=== PATIENT | female | born 1965 | race Caucasian/White ===

== ENCOUNTER 2020-02-14 10:48 | Outpatient (CLI) | payer BC | END 2020-02-14 10:49 | disposition home or self-care (01) | LOC: COV 10:48 | PROVIDERS: ATTEND Family Medicine | DX: R50.9 Fever, unspecified (principal); R05 Cough; M79.10 Myalgia, unspecified site; R53.83 Other fatigue; J02.9 Acute pharyngitis, unspecified; R09.81 Nasal congestion; Z20.828 Contact with and (suspected) exposure to other viral communicable diseases ==

== ENCOUNTER 2020-04-12 07:00 | Outpatient (CLI) | payer BC ==
--- NOTE | 2020-04-12 11:31 | XRAY Report ---
PROCEDURE: Chest 2 View X-Ray INDICATIONS: CHEST PAIN TECHNIQUE: 2 view(s) of the chest. COMPARISON: None. FINDINGS: Surgical changes and devices: None. Lungs and pleura: No pleural effusions or pneumothorax. Lungs are clear. Mediastinum: Mediastinal contours are normal. Heart size is normal. Bones and chest wall: No suspicious bony abnormalities. Soft tissues appear unremarkable. IMPRESSION: No acute cardiopulmonary disease process. Reviewed by: Nan Alatorre MD, PhD on 04/12/2020 11:29 AM [facility] Approved by: Nan Alatorre MD, PhD on 04/12/2020 11:29 AM [facility] Station ID: [id number]
== END 2020-04-12 23:59 | disposition home or self-care (01) ==
LOC: DI.S 07:00
PROVIDERS: ATTEND Physician Assistant
DX: R07.9 Chest pain, unspecified (principal)

== ENCOUNTER 2020-04-12 12:36 | Emergency (ER) | payer BC ==
--- NOTE | 2020-04-12 13:03 | ED Physician Documentation ---
PD HPI CHEST PAIN - Stated complaint Stated Complaint: CHEST PX - History obtained from History obtained from: Patient - Additional information Additional information: 54-year-old woman with history of hypertension had coronavirus 3 weeks ago and has been short of breath ever since. Over the last few days, 3-4 she has had migratory very fleeting sharp chest pain. There is no particular pattern to it. Few days ago it was on the right side and radiating up towards the neck. Today it has been more on the left. She denies cough. She has had left leg pain for a day or 2 as well. No history of DVT or PE or coronary issues. Review of Systems Ten Systems: 10 systems reviewed and negative Constitutional: reports: Fatigue Cardiac: reports: Chest pain / pressure, Pedal edema, Calf pain. denies: Palpitations Respiratory: reports: Dyspnea. denies: Cough PD PAST MEDICAL HISTORY - Past Surgical History Past Surgical History: Yes /FLAME CUTTER: Hysterectomy - Present Medications Home Medications: Ambulatory Orders Medication Instructions Recorded Confirmed Sertraline [Zoloft] 04/12/20 lisinopriL [Zestril] 04/12/20 - Allergies Allergies/Adverse Reactions: Allergies Allergy/AdvReac Type Severity Reaction Status Date / Time Latex, Natural Rubber Allergy Rash Verified 04/12/20 13:09 Sulfa (Sulfonamide Allergy unknown Verified 04/12/20 13:09 Antibiotics) - Social History Does the pt smoke?: No Smoking Status: Never smoker Does the pt drink ETOH?: No Does the pt have substance abuse?: No - Immunizations Immunizations are current?: Yes - POLST Patient has POLST: No PD ED PE NORMAL - Vitals Vital signs reviewed: Yes - General General: Alert and oriented X 3, No acute distress - HEENT HEENT: PERRL, EOMI - Neck Neck: Supple, no meningeal sign, No bony TTP - Cardiac Cardiac: RRR, No murmur - Respiratory Respiratory: No respiratory distress, Clear bilaterally - Abdomen Abdomen: Non tender - Back Back: No CVA TTP, No spinal TTP - Derm Derm: Normal color, Warm and dry - Extremities Extremities: Other (Mild left calf tenderness without obvious asymmetry on exam.) - Neuro Neuro: Alert and oriented X 3, Normal speech Results - Vitals Vitals: Vital Signs - 24 hr 04/12/20 04/12/20 04/12/20 13:03 14:25 15:36 Temperature 36.8 C Heart Rate 67 70 73 Respiratory 18 18 17 Rate Blood Pressure 196/111 H 148/93 H 147/92 H O2 Saturation 99 97 97 Oxygen O2 Source Room air - EKG (time done) 1247 Rate: Rate (enter#) (65) Rhythm: NSR [place]: Normal Intervals: Normal MT QRS: Normal Ischemia: Normal ST segments Computer interpretation: Disagree with computer (calls it aflutter, but there is artifact) - Labs Labs: Laboratory Tests 04/12/20 04/12/20 04/12/20 13:00 13:00 13:00 WBC 6.4 RBC 4.41 Hgb 13.1 Hct 39.3 MCV 89.1 MCH 29.7 MCHC 33.3 RDW 13.3 Plt Count 212 MPV 10.1 Neut # (Auto) 4.8 Lymph # (Auto) 1.1 L [place] # (Auto) 0.4 Eos # (Auto) 0.1 Baso # (Auto) 0.1 Absolute Nucleated RBC 0.00 Nucleated RBC % 0.0 D-Dimer > 1050.0 H Sodium 135 Potassium 3.8 Chloride 101 Carbon Dioxide 22 Anion Gap 12.0 BUN 16 Creatinine 0.7 Estimated GFR (MDRD) 88 L Glucose 132 H Calcium 9.4 Troponin I High Sens 04/12/20 13:00 WBC RBC Hgb Hct MCV MCH MCHC RDW Plt Count MPV Neut # (Auto) Lymph # (Auto) [place] # (Auto) Eos # (Auto) Baso # (Auto) Absolute Nucleated RBC Nucleated RBC % D-Dimer Sodium Potassium Chloride Carbon Dioxide Anion Gap BUN Creatinine Estimated GFR (MDRD) Glucose Calcium Troponin I High Sens 4.4 - Rads (name of study) LLE Duplex Radiology: Prelim report reviewed (no DVT) PD MEDICAL DECISION MAKING - ED course ED course: 54-year-old woman presents with fleeting atypical chest pains and left leg swelling. She had recent coronavirus and this may be the cause of the positive D-dimer in the setting of negative CT angiography of the chest and left leg Doppler. Took call from radiologist Regarding 7 mm right lower lobe nodule which was not discussed with the patient at the time of service. I called her at home and spoke with her personally at 1720 hrs., she was already aware of this but understands the need for repeat CT in 6 months. Departure - Departure Disposition: Home, Self Care Clinical Impression: Atypical chest pain Leg pain Qualifiers: Laterality: left Qualified Code(s): M79.605 - Pain in left leg Condition: Good Record reviewed to determine appropriate education?: Yes Instructions: ED Chest Pain NonCardiac Comments: Call your doctor to arrange a follow-up appointment, make the next available appointment. In the interim, return anytime if worse or if new symptoms develop. Discharge Date/Time: 04/12/20 15:40
[2020-04-12] MEDS ORDERED: ASPIRIN CHEW 81 MG TABLET PO STA (13:10)
[2020-04-12 13:11] LABS: BASOPHILS # (AUTO) 0.1 10^3/uL (0.0-0.1); BASOPHILS % (AUTO) 0.8 %; EOSINOPHILS # (AUTO) 0.1 10^3/uL (0.0-0.7); EOSINOPHILS % (AUTO) 0.9 %; HGB - HEMOGLOBIN 13.1 g/dL (12.0-16.0); LYMPHOCYTES # (AUTO) 1.1 10^3/uL (1.5-3.5); LYMPHOCYTES % (AUTO) 17.2 %; MEAN CORPUSCULAR HEMOGLOBIN 29.7 pg (27.0-31.0); MEAN CORPUSCULAR HGB CONC 33.3 g/dL (32.0-36.0); MEAN CORPUSCULAR VOLUME 89.1 fL (81.0-99.0); MEAN PLATELET VOLUME 10.1 fL (7.9-10.8); MONOCYTES # (AUTO) 0.4 10^3/uL (0.0-1.0); NEUTROPHILS # (AUTO) 4.8 10^3/uL (1.5-6.6); NEUTROPHILS % (AUTO) 74.8 %; PLT - PLATELET COUNT 212 10^3/uL (130-450); RED BLOOD COUNT 4.41 10^6/uL (4.20-5.40); RED CELL DISTRIBUTION WIDTH 13.3 % (12.0-15.0); WHITE BLOOD COUNT 6.4 x10^3/uL (4.8-10.8)
[2020-04-12 13:44] LABS: CALCIUM 9.4 mg/dL (8.5-10.3); CREATININE 0.7 mg/dL (0.4-1.0)
[2020-04-12] MEDS ORDERED: IOVERSOL 320 100 ML VIAL IVP ONE ×2 (14:40→14:51)
--- NOTE | 2020-04-12 15:03 | CT Report ---
PROCEDURE: ANGIO CHEST W/WO INDICATIONS: chest pain, high dimer, PE protocol CONTRAST: IV CONTRAST: Optiray 320 ml: 160 PO CONTRAST: *NO PO CONTRAST TECHNIQUE: After the administration of intravenous contrast, 2 mm thick sections acquired from the pulmonary api beth to the posterior costophrenic angles. 3-dimensional maximum intensity projection (MIP) coronal a nd sagittal reformats were then acquired through the thorax. For radiation dose reduction, the follow ing was used: automated exposure control, adjustment of mA and/or kV according to patient size. COMPARISON: None FINDINGS: Image quality: Excellent. Pulmonary arteries: Pulmonary arteries are normal in size, and demonstrate no intraluminal filling d efects to suggest central pulmonary embolism. Lungs and pleura: Lungs are clear. No pleural effusions or pneumothorax. Central and peripheral ai rways are patent. Mediastinum: Heart size is normal, without pericardial effusion. No mediastinal or hilar adenopathy . Thoracic aorta is normal in caliber and enhancement. Esophagus is normal in caliber, without hiat al hernia. Bones and chest wall: No suspicious bony lesions. Ribs and thoracic spine appear intact throughout. The thyroid is normal. No axillary or supraclavicular adenopathy. Abdomen: Visualized upper abdominal solid organs appear normal in the early arterial phase of enhanc ement. IMPRESSION: 1. No pulmonary embolism. 2. No acute abnormality of the chest. Reviewed by: Jameson Alamo on 04/12/2020 3:02 PM PST Approved by: Jameson Alamo on 04/12/2020 3:02 PM PST Station ID: [id number]
--- NOTE | 2020-04-12 15:15 | Ultrasound Report ---
PROCEDURE: Duplex Ext Veins Left INDICATIONS: LLE pain TECHNIQUE: Real-time imaging, as well as color and pulse Doppler interrogation, were performed of the lower extr emity deep veins from the inguinal ligament to the popliteal fossa. COMPARISON: None. FINDINGS: The visualized deep veins are normally compressible, and free of intraluminal thrombus. Th e peroneal vein was not well visualized in the left lower leg. Color and pulse Doppler demonstrate no rmal phasic intraluminal flow. There is normal augmentation response to distal compression maneuver. IMPRESSION: 1. No evidence of deep venous thrombosis in the left lower extremity. Reviewed by: Jason Cage MD on 04/12/2020 3:14 PM PST Approved by: Jason Cage MD on 04/12/2020 3:14 PM PST Station ID: [id number]
[2020-04-12 15:36] VITALS: BP 147/92
== END 2020-04-12 15:40 | disposition home or self-care (01) ==
LOC: ED 12:36
DX: R07.89 Other chest pain (principal); M79.605 Pain in left leg; I10 Essential (primary) hypertension
CPT/HCPCS: 71275; 80048; 84484; 85025; 85379; 93005; 93971; 99284; A9270; Q9967

== ENCOUNTER 2020-06-24 15:09 | Outpatient (CLI) | payer BC ==
--- NOTE | 2020-06-25 08:27 | Mammography Report ---
BILATERAL DIGITAL SCREENING MAMMOGRAM 3D/2D: 06/24/2020 CLINICAL: Routine screening. Comparison is made to exams dated: 08/22/2018 mammogram, 06/17/2017 mammogram, and 08/26/[address] - [facility]. The tissue of both breasts is heterogeneously dense. This ma y lower the sensitivity of mammography. No significant masses, calcifications, or other findings are seen in either breast. There has been no significant interval change. IMPRESSION: NEGATIVE There is no mammographic evidence of malignancy. A 1 year screening mammogram is recommended. This exam was interpreted at Station ID: [id number]. NOTE: For mammograms, a report in lay terms will be sent to the patient. Approximately 15% of breast malignancies will not be visualized mammographically. In the management of a palpable breast mass, a negative mammogram must not discourage biopsy of a clinically suspicious lesion. Electronically Signed By: Myles Vann M.D. [email or web address]:06/24/2020 16:37:31 ACR BI-RADS Category 1: Negative 3341F PARENCHYMAL PATTERN: (D) - The breast(s) demonstrate(s) heterogeneously dense fibroglandular parenchy ma. BI-RADS CATEGORY: (1) - 1 RECOMMENDATION: (ANNUAL) - Recommend routine annual screening mammography. [id number] 1 year screening LATERALITY: (B)
== END 2020-06-24 15:10 | disposition home or self-care (01) ==
LOC: DI.S 15:09
PROVIDERS: ATTEND Registered Nurse
DX: Z12.31 Encounter for screening mammogram for malignant neoplasm of breast (principal)

== ENCOUNTER 2021-01-24 16:49 | Outpatient (CLI) | payer BC ==
[2021-01-24 17:06] LABS: BASOPHILS # (AUTO) 0.1 10^3/uL (0.0-0.1); BASOPHILS % (AUTO) 1.1 %; EOSINOPHILS # (AUTO) 0.1 10^3/uL (0.0-0.7); EOSINOPHILS % (AUTO) 2.2 %; HCT - HEMATOCRIT 39.6 % (37.0-47.0); HGB - HEMOGLOBIN 13.3 g/dL (12.0-16.0); LYMPHOCYTES # (AUTO) 1.3 10^3/uL (1.5-3.5); LYMPHOCYTES % (AUTO) 20.3 %; MEAN CORPUSCULAR HEMOGLOBIN 29.6 pg (27.0-31.0); MEAN CORPUSCULAR HGB CONC 33.6 g/dL (32.0-36.0); MEAN CORPUSCULAR VOLUME 88.2 fL (81.0-99.0); MEAN PLATELET VOLUME 9.5 fL (7.9-10.8); MONOCYTES # (AUTO) 0.3 10^3/uL (0.0-1.0); MONOCYTES % (AUTO) 5.2 %; NEUTROPHILS # (AUTO) 4.6 10^3/uL (1.5-6.6); PLT - PLATELET COUNT 211 10^3/uL (130-450); RED BLOOD COUNT 4.49 10^6/uL (4.20-5.40); RED CELL DISTRIBUTION WIDTH 12.9 % (12.0-15.0); WHITE BLOOD COUNT 6.5 x10^3/uL (4.8-10.8)
[2021-01-24 17:25] LABS: ALBUMIN 4.8 g/dL (3.2-5.5); ALBUMIN/GLOBULIN RATIO 1.5 (1.0-2.2); ALKALINE PHOSPHATASE 81 IU/L (42-121); ALT ALANINE AMINOTRANSFERASE 19 IU/L (10-60); AST ASPARTATE AMINOTRANSFERASE 24 IU/L (10-42); BILIRUBIN,TOTAL 0.6 mg/dL (0.2-1.0); BUN - BLOOD UREA NITROGEN 17 mg/dL (6-20); CALCIUM 9.5 mg/dL (8.5-10.3); CARBON DIOXIDE - CO2 25 mmol/L (21-32); CHLORIDE 99 mmol/L (101-111); CHOLESTEROL 270 mg/dL; CREATININE 0.8 mg/dL (0.4-1.0); GFR - MDRD 75 (>89); GLUCOSE 100 mg/dL (70-100); HDL CHOLESTEROL 54 mg/dL; LDL CHOLESTEROL,CALCULATED 185 mg/dL; LDL/HDL RATIO 3.4 (<4.4); POTASSIUM 3.8 mmol/L (3.5-5.0); SODIUM 135 mmol/L (135-145); TOTAL PROTEIN 7.9 g/dL (6.7-8.2); TRIGLYCERIDES 153 mg/dL; VLDL CHOLESTEROL 31 mg/dL
[2021-01-24 17:37] LABS: THYROID STIMULATING HORMONE 1.77 uIU/mL (0.34-5.60)
== END 2021-01-24 16:50 | disposition home or self-care (01) ==
LOC: LAB 16:49
PROVIDERS: ATTEND Registered Nurse
DX: U07.1 COVID-19 (principal); G43.909 Migraine, unspecified, not intractable, without status migrainosus; I10 Essential (primary) hypertension
CPT/HCPCS: 36415; 80053; 80061; 83721; 84443; 85025

== ENCOUNTER 2021-11-18 08:00 | Outpatient (CLI) | payer BC ==
--- NOTE | 2021-11-18 13:46 | XRAY Report ---
PROCEDURE: Ankle 3 View RT INDICATIONS: RIGHT ANKLE PAIN TECHNIQUE: 3 views of the ankle were acquired. COMPARISON: None FINDINGS: Bones: Minimal displaced distal fibular tip fracture.. Ankle mortise is normally aligned. No suspic ious bony lesions. Soft tissues: Lateral malleoli are edema. Achilles tendon appears normal. IMPRESSION: Minimal displaced distal fibular tip fracture. Reviewed by: Nat James MD on 11/18/2021 1:45 PM PDT Approved by: Nat James MD on 11/18/2021 1:45 PM PDT Station ID: [id number]
--- NOTE | 2021-11-18 13:48 | XRAY Report ---
PROCEDURE: Foot 3 View RT INDICATIONS: RIGHT FOOT PAIN TECHNIQUE: 3 views of the foot were acquired. COMPARISON: X-ray ankle 11/18/2021 FINDINGS: Bones: There is a mildly displaced fracture at the base of the fifth metatarsal. Distal fibular tip f racture is present although better seen on x-ray foot of 11/10/2021. No suspicious bony lesions. Soft tissues: Edema is noted adjacent to the fifth digit as well as lateral malleolus. Achilles tendo n appears normal. IMPRESSION: Mildly displaced fifth metatarsal base fracture. Minimally displaced distal fibular tip fracture. Please see x-ray ankle 11/18/2021. Reviewed by: Nat James MD on 11/18/2021 1:46 PM PDT Approved by: Nat James MD on 11/18/2021 1:46 PM PDT Station ID: [id number]
== END 2021-11-18 23:59 | disposition home or self-care (01) ==
LOC: DI.S 08:00
PROVIDERS: ATTEND Physician Assistant Medical
DX: S82.831A Other fracture of upper and lower end of right fibula, initial encounter for closed fracture (principal); S92.351A Displaced fracture of fifth metatarsal bone, right foot, initial encounter for closed fracture

== ENCOUNTER → 2021-11-18 | Outpatient (CLI) | payer BC | END | disposition EMS.NT | LOC: EMS 10:41 | DX: S99.911A Unspecified injury of right ankle, initial encounter (principal); W01.0XXA Fall on same level from slipping, tripping and stumbling without subsequent striking against object, initial encounter; Y93.01 Activity, walking, marching and hiking ==

== ENCOUNTER 2021-11-25 16:42 | Emergency (ER) | payer BC ==
[2021-11-25 17:10] VITALS: BP 160/85
--- NOTE | 2021-11-25 18:19 | ED Physician Documentation ---
History of Present Illness - Stated complaint Stated Complaint: R FOOT PX - Chief complaint Chief Complaint: General - History obtained from History obtained from: Patient - History of Present Illness Timing: How many weeks ago (1) Pain level max: 3 Pain level now: 3 - Additonal information Additional information: 56 year-old female comes into the emergency department stating that she has an abrasion to the left knee. This occurred about one week ago. She states that she is concerned about potential infection. No redness, drainage is decreasing. No fevers. No chills. She said she also has a right foot and ankle fracture. She contacted orthopedics, but cannot be seen for another three weeks. She is curren tly in a walking boot and on crutches. 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 - Present Medications Home Medications: Ambulatory Orders Medication Instructions Recorded Confirmed Sertraline [Zoloft] 04/12/20 lisinopriL [Zestril] 04/12/20 - Allergies Allergies/Adverse Reactions: Allergies Allergy/AdvReac Type Severity Reaction Status Date / Time Latex, Natural Rubber Allergy Rash Verified 11/25/21 17:06 - Social History Does the pt smoke?: No Smoking Status: Never smoker Does the pt drink ETOH?: No Does the pt have substance abuse?: No - Immunizations Immunizations are current?: Yes - POLST Patient has POLST: No PD ED PE NORMAL - Vitals Vital signs reviewed: Yes - General General: Alert and oriented X 3, No acute distress - HEENT HEENT: Moist mucous membranes - Derm Derm: Warm and dry - Extremities Extremities: Other (abrasion to the left knee. No signs of infection. No drainage. No abscess. Full range of motion without pain. Neurovascularly intact. The right foot is also NVI) - Neuro Neuro: Alert and oriented X 3 - Psych Psych: Normal mood, Normal affect Results - Vitals Vitals: Vital Signs - 24 hr 11/25/21 17:06 Temperature 37.1 C Heart Rate 73 Respiratory 18 Rate Blood Pressure 160/85 H O2 Saturation 97 Oxygen O2 Source Room air PD MEDICAL DECISION MAKING - ED course Complexity details: considered differential, d/w patient, d/w family ED course: Her abrasion is healing well. There are no signs of infection. We will have her try to leave the wound open to the air as much as possible. Her tetanus is up-to-date. Recommend that she continue to try to contact the orthopedic office for an earlier appointment for her base of the fifth metatarsal fracture. She was counseled that this fracture does carry a risk of malunion/nonunion. Patient counseled regarding signs and symptoms for which I believe an urgent reevaluation would be needed. Patient with good understanding and agreement to plan. Patient comfortable going home at this time. Warnings of infection given at bedside Departure - Departure Disposition: Home, Self Care Clinical Impression: Abrasion of right knee Qualifiers: Encounter type: initial encounter Qualified Code(s): S80.211A - Abrasion, right knee, initial encounter Fracture of base of fifth metatarsal bone Qualifiers: Encounter type: initial encounter Fracture type: closed Laterality: right Qualified Code(s): S92.351A - Displaced fracture of fifth metatarsal bone, right foot, initial encounter for closed fracture Condition: Good Instructions: ED Abrasion, ED Fx Foot Follow-Up: Jaquelin Vieira ARNP [Primary Care Provider] - [facility] [Provider Group] Comments: Keep the wound clean. You can leave it open to the air. The fracture at the base of the fifth metatarsal in your foot is at risk for nonunion/malunion because of the locations, but often these will still heal well. It is important that you follow-up, please stay in the boot until released by orthopedics. Discharge Date/Time: 11/25/21 18:43
== END 2021-11-25 18:43 | disposition home or self-care (01) ==
LOC: ED 16:42
DX: S80.211A Abrasion, right knee, initial encounter (principal); S92.351A Displaced fracture of fifth metatarsal bone, right foot, initial encounter for closed fracture; X58.XXXA Exposure to other specified factors, initial encounter
CPT/HCPCS: 99281; 99282

== ENCOUNTER 2021-12-16 11:15 | Outpatient (CLI) | payer BC ==
--- NOTE | 2021-12-16 16:35 | XRAY Report ---
PROCEDURE: Foot 3 View RT INDICATIONS: FOOT PAIN TECHNIQUE: 3 views of the foot were acquired. COMPARISON: X-ray fluid and ankle 11/18/2021. FINDINGS: Bones: Fifth metatarsal base fracture is present. Current study demonstrates increased diastases betw een fracture fragments compared to prior exam. Fibular tip avulsion fracture is unchanged. No suspici ous bony lesions. Soft tissues: No tibiotalar joint effusion. Achilles tendon appears normal. IMPRESSION: Increased diastases between the fifth metatarsal base fracture fragments. Stable distal fibular tip avulsion fracture. Reviewed by: Nat James MD on 12/16/2021 4:34 PM PDT Approved by: Nat James MD on 12/16/2021 4:34 PM PDT Station ID: [id number]
--- NOTE | 2021-12-16 16:40 | XRAY Report ---
PROCEDURE: Ankle 3 View RT INDICATIONS: ANKLE PX TECHNIQUE: 3 views of the ankle were acquired. COMPARISON: X-ray ankle and foot 11/18/2021. FINDINGS: Bones: Distal fibular tip avulsion fracture is unchanged. There is increased diastases of previous id entified fifth metatarsal base fracture. Ankle mortise is normally aligned. No suspicious bony lesio ns. Soft tissues: No tibiotalar joint effusion. Achilles tendon appears normal. IMPRESSION: Increased diastases of fifth metatarsal base fracture. Stable distal fibular avulsion tip fracture. Reviewed by: Nat James MD on 12/16/2021 4:39 PM PDT Approved by: Nat James MD on 12/16/2021 4:39 PM PDT Station ID: [id number]
== END 2021-12-16 23:59 | disposition home or self-care (01) ==
LOC: DI.WOS 11:15
PROVIDERS: ATTEND Orthopaedic Surgery
DX: S92.351D Displaced fracture of fifth metatarsal bone, right foot, subsequent encounter for fracture with routine healing (principal); S82.831D Other fracture of upper and lower end of right fibula, subsequent encounter for closed fracture with routine healing

== ENCOUNTER 2022-01-19 08:00 | Outpatient (CLI) | payer BC ==
--- NOTE | 2022-01-19 13:18 | XRAY Report ---
PROCEDURE: Foot 3 View RT INDICATIONS: FOOT FX TECHNIQUE: 3 views of the foot were acquired. COMPARISON: 11/18/2021 and 12/16/2021 FINDINGS: Bones: The fifth metatarsal base has an unchanged appearance compared to the prior study with persist ent lucency. Degenerative changes of the interphalangeal joints. No suspicious bony lesions. Soft tissues: No tibiotalar joint effusion. Achilles tendon appears normal. IMPRESSION: Chronic fracture of the base of the fifth metatarsal with persistent fracture lucency. Reviewed by: Jameson Alamo on 01/19/2022 1:17 PM PDT Approved by: Jameson Alamo on 01/19/2022 1:17 PM PDT Station ID: [id number]
--- NOTE | 2022-01-19 13:28 | XRAY Report ---
PROCEDURE: Ankle 3 View RT INDICATIONS: ANKLE FX TECHNIQUE: 3 views of the ankle were acquired. COMPARISON: 11/16/2021 FINDINGS: Bones: Healing right distal fibular avulsion fracture. Ankle mortise is normally aligned. No suspici ous bony lesions. Soft tissues: No tibiotalar joint effusion. Achilles tendon appears normal. IMPRESSION: Healing avulsion fracture of the right distal fibula Reviewed by: Jameson Alamo on 01/19/2022 1:27 PM PDT Approved by: Jameson Alamo on 01/19/2022 1:27 PM PDT Station ID: [id number]
== END 2022-01-19 23:59 | disposition home or self-care (01) ==
LOC: DI.WOS 08:00
PROVIDERS: ATTEND Orthopaedic Surgery
DX: S92.351D Displaced fracture of fifth metatarsal bone, right foot, subsequent encounter for fracture with routine healing (principal); S82.61XD Displaced fracture of lateral malleolus of right fibula, subsequent encounter for closed fracture with routine healing

== ENCOUNTER 2022-02-20 07:13 | Outpatient (CLI) | payer BC ==
[2022-02-20 15:30] LABS: BASOPHILS # (AUTO) 0.1 10^3/uL (0.0-0.1); BASOPHILS % (AUTO) 1.2 %; EOSINOPHILS # (AUTO) 0.3 10^3/uL (0.0-0.7); EOSINOPHILS % (AUTO) 6.1 %; HCT - HEMATOCRIT 40.9 % (37.0-47.0); HGB - HEMOGLOBIN 13.5 g/dL (12.0-16.0); LYMPHOCYTES % (AUTO) 19.8 %; MEAN CORPUSCULAR HEMOGLOBIN 29.1 pg (27.0-31.0); MEAN CORPUSCULAR VOLUME 88.1 fL (81.0-99.0); MEAN PLATELET VOLUME 10.8 fL (7.9-10.8); MONOCYTES # (AUTO) 0.2 10^3/uL (0.0-1.0); MONOCYTES % (AUTO) 4.4 %; NEUTROPHILS # (AUTO) 3.6 10^3/uL (1.5-6.6); NEUTROPHILS % (AUTO) 68.3 %; PLT - PLATELET COUNT 198 10^3/uL (130-450); RED BLOOD COUNT 4.64 10^6/uL (4.20-5.40); RED CELL DISTRIBUTION WIDTH 13.3 % (12.0-15.0); WHITE BLOOD COUNT 5.2 x10^3/uL (4.8-10.8)
[2022-02-20 15:50] LABS: ALBUMIN 4.4 g/dL (3.2-5.5); ALBUMIN/GLOBULIN RATIO 1.4 (1.0-2.2); ALKALINE PHOSPHATASE 88 IU/L (42-121); ALT ALANINE AMINOTRANSFERASE 25 IU/L (10-60); AST ASPARTATE AMINOTRANSFERASE 27 IU/L (10-42); BILIRUBIN,TOTAL 0.6 mg/dL (0.2-1.0); BUN - BLOOD UREA NITROGEN 18 mg/dL (6-20); CALCIUM 9.5 mg/dL (8.5-10.3); CARBON DIOXIDE - CO2 27 mmol/L (21-32); CHLORIDE 101 mmol/L (101-111); CHOL/HDL RATIO 5.2 (<4.4); CHOLESTEROL 256 mg/dL; CREATININE 0.8 mg/dL (0.4-1.0); GFR - MDRD 74 (>89); GLUCOSE 105 mg/dL (70-100); HDL CHOLESTEROL 49 mg/dL; LDL CHOLESTEROL,CALCULATED 175 mg/dL; LDL/HDL RATIO 3.6 (<4.4); POTASSIUM 4.1 mmol/L (3.5-5.0); SODIUM 137 mmol/L (135-145); TOTAL PROTEIN 7.6 g/dL (6.7-8.2); TRIGLYCERIDES 161 mg/dL; VLDL CHOLESTEROL 32 mg/dL
[2022-02-20 16:01] LABS: THYROID STIMULATING HORMONE 1.49 uIU/mL (0.34-5.60)
== END 2022-02-20 07:14 | disposition home or self-care (01) ==
LOC: LAB.S 07:13
PROVIDERS: ATTEND Registered Nurse
DX: I10 Essential (primary) hypertension (principal); Z13.220 Encounter for screening for lipoid disorders; Z13.29 Encounter for screening for other suspected endocrine disorder; Z13.0 Encounter for screening for diseases of the blood and blood-forming organs and certain disorders involving the immune mechanism
CPT/HCPCS: 36415; 80053; 80061; 83721; 84443; 85025

== ENCOUNTER 2022-10-01 07:00 | Outpatient (CLI) | payer BC, OTHER ==
--- NOTE | 2022-10-01 17:41 | XRAY Report ---
PROCEDURE: Hip w/Pelvis 1V LT INDICATIONS: CONTUSION OF PELVIS TECHNIQUE: AP pelvis with lateral view(s) of the left hip(s). COMPARISON: None. FINDINGS: Bones: No fractures or dislocations. No suspicious bony lesions. Doubtful narrowing of joint spac e and possible osteophytic lipping. Soft tissues: No suspicious soft tissue calcifications . IMPRESSION: No acute bony abnormality. If symptoms persist, follow-up radiographs and/or CT or MRI may be helpful for further evaluation. Kellgren-Oumar scale of osteoarthritis: Grade 1-2: mild osteoarthritis. Reviewed by: Myles Rae MD on 10/01/2022 5:40 PM PDT Approved by: Myles Rae MD on 10/01/2022 5:40 PM PDT Station ID: [id number]
--- NOTE | 2022-10-01 17:43 | XRAY Report ---
PROCEDURE: Lumbar Spine 2 View INDICATIONS: LOW BACK PAIN TECHNIQUE: 2 views of the lumbar spine were acquired. COMPARISON: None. FINDINGS: Bones: 5 [id number] vertebrae are present. Mild left convexity curvature centered at L3. Superi or endplate compression fracture of L5, approximately one quarter vertebral body height loss. Mild mu ltilevel degenerative changes with disc height loss, endplate spurring, and facet arthropathy. Soft tissues: Overlying bowel gas pattern is normal. No suspicious soft tissue calcifications. IMPRESSION: Age-indeterminate superior wedging of L5, approximately one quarter vertebral body heigh t loss. Multilevel degenerative changes of the lumbar spine are present. Reviewed by: Myles Rae MD on 10/01/2022 5:42 PM PDT Approved by: Myles Rae MD on 10/01/2022 5:42 PM PDT Station ID: [id number]
--- NOTE | 2022-10-01 17:44 | XRAY Report ---
PROCEDURE: Knee 2 View RT INDICATIONS: CONTUSION OF RIGHT KNEE TECHNIQUE: 2 views of the right knee(s) were acquired. COMPARISON: None. FINDINGS: Bones: No fractures or dislocations. No suspicious bony lesions. Soft tissues: No knee joint effusion. No suspicious soft tissue calcifications . IMPRESSION: No acute bony abnormality. If there remains a high clinical concern for fracture, consider cross-sect ional imaging now. If pain persists, consider repeat x-ray in 10-14 days or cross-sectional imaging. Reviewed by: Myles Rae MD on 10/01/2022 5:43 PM PDT Approved by: Myles Rae MD on 10/01/2022 5:43 PM PDT Station ID: [id number]
== END 2022-10-01 23:59 | disposition home or self-care (01) ==
LOC: DI.S 07:00
PROVIDERS: ATTEND Registered Nurse
DX: S80.01XA Contusion of right knee, initial encounter (principal); S30.0XXA Contusion of lower back and pelvis, initial encounter; M47.816 Spondylosis without myelopathy or radiculopathy, lumbar region

== ENCOUNTER 2022-10-16 07:56 | Outpatient (CLI) | payer BC ==
--- NOTE | 2022-10-16 13:42 | CT Report ---
PROCEDURE: LUMBAR SPINE WO INDICATIONS: CONTUSION TO LOWER BACK TECHNIQUE: Noncontrast 3 mm thick sections acquired from the T12 level to the sacrum. Sagittal and coronal refo rmats were constructed. For radiation dose reduction, the following was used: automated exposure co ntrol, adjustment of mA and/or kV according to patient size. COMPARISON: Lumbar spine radiographs 10/01/2022 FINDINGS: Image quality: Excellent. Bones: Trace levoconvex curvature of the lumbar spine. There is mild grade 1 retrolisthesis of L5 on S1 measuring 5 mm. Generalized osteopenia is noted. No acute vertebral body compression fractures. No suspicious lytic or blastic bony lesions. Central spinal caliber is of normal overall caliber. N o pars defects. T12-L1: Normal in appearance. L1-L2: Normal in appearance. L2-L3: Normal in appearance. L3-L4: Normal in appearance. L4-L5: Mild circumferential disc bulging and mild facet hypertrophy, which result in mild narrowing of the spinal canal and mild narrowing of the bilateral neural foramina. L5-S1: Grade 1 anterolisthesis of L5 on S1. Loss of disc space height with vacuum disc phenomenon a nd degenerative endplate changes. Mild circumferential disc bulging is seen. There is mild bilateral facet hypertrophy. Findings result in moderate narrowing of the bilateral neural foramina without sig nificant spinal canal stenosis. Soft tissues: No retroperitoneal masses or hematomas. Visualized aorta is normal in caliber. IMPRESSION: 1.No acute osseous abnormality. No high-grade spinal canal stenosis or high-grade neuroforaminal narr owing. 2.At L5-S1, grade 1 retrolisthesis and degenerative changes result in moderate narrowing of the bilat eral neural foramina without significant spinal canal stenosis. 3.At L4-5, degenerative changes result in mild narrowing of the spinal canal and mild neural foramina l narrowing. Reviewed by: Myles Vnan MD on 10/16/2022 1:40 PM PDT Approved by: Myles Vann MD on 10/16/2022 1:40 PM PDT Station ID: [id number]
== END 2022-10-16 07:57 | disposition home or self-care (01) ==
LOC: DI 07:56
PROVIDERS: ATTEND Physician Assistant
DX: S30.0XXA Contusion of lower back and pelvis, initial encounter (principal); M43.17 Spondylolisthesis, lumbosacral region; M47.817 Spondylosis without myelopathy or radiculopathy, lumbosacral region; M47.816 Spondylosis without myelopathy or radiculopathy, lumbar region

== ENCOUNTER 2022-11-04 08:00 | Outpatient (CLI) | payer BC, OTHER ==
--- NOTE | 2022-11-04 16:39 | XRAY Report ---
PROCEDURE: Chest 2 View X-Ray INDICATIONS: CHEST PAIN TECHNIQUE: 2 views of the chest were acquired. COMPARISON: 04/12/2022. FINDINGS: Surgical changes and devices: None. Lungs and pleura: No pleural effusions or pneumothorax. Lungs are clear. Mediastinum: Mediastinal contours appear normal. Heart size is normal. Bones and chest wall: No suspicious bony lesions. Overlying soft tissues appear unremarkable. IMPRESSION: No acute cardiopulmonary process. Reviewed by: Nestor Contreras MD on 11/04/2022 4:37 PM PDT Approved by: Nestor Contreras MD on 11/04/2022 4:37 PM PDT Station ID: [id number]
== END 2022-11-04 23:59 | disposition home or self-care (01) ==
LOC: DI.S 08:00
PROVIDERS: ATTEND Physician Assistant
DX: R07.9 Chest pain, unspecified (principal)

== ENCOUNTER 2022-11-30 10:53 | Emergency (ER) | payer BC ==
[2022-11-30 11:08] VITALS: BP 193/118
--- NOTE | 2022-11-30 11:50 | XRAY Report ---
PROCEDURE: Foot 3 View RT INDICATIONS: Trauma TECHNIQUE: 3 views of the foot were acquired. COMPARISON: Right foot radiographs 12/16/2021. FINDINGS: Bones: Fifth digit proximal phalangeal head fracture with mild impaction. Possibly chronic. Not seen in 2021. Prior fracture at the fifth metatarsal base. Similar alignment. No dislocation. No suspicious bony l esions. Soft tissues: No suspicious soft tissue calcifications or masses. IMPRESSION: Fifth digit proximal phalangeal head fracture with mild impaction. Possibly chronic. Prior fracture at the fifth metatarsal base, similar alignment. Reviewed by: Gibran Aguilar MD on 11/30/2022 11:48 AM PDT Approved by: Gibran Aguilar MD on 11/30/2022 11:48 AM PDT Station ID: [id number]
--- NOTE | 2022-11-30 11:59 | ED Physician Documentation ---
History of Present Illness - Stated complaint Stated Complaint: RT FT SWOLLEN - Chief complaint Chief Complaint: Trauma Ext - Additonal information Additional information: 57-year-old female presents emergency department for evaluation of acute right distal toe pain sustained after accidentally stubbing her foot on a wall at home yesterday. She does have a history of previous fracture to this metatarsal and toe in the past. Review of Systems Musculoskeletal: reports: Extremity pain PD PAST MEDICAL HISTORY - Past Medical History Past Medical History: Yes Cardiovascular: Hypertension Respiratory: None Neuro: Migraines, Other Endocrine/Autoimmune: None GI: None WASTE MACHINE TENDER: None : None HEENT: None Psych: None Musculoskeletal: None Derm: None Other Past Medical History: cervical dystonia - Past Surgical History Past Surgical History: Yes Ortho: Other /WASTE MACHINE TENDER: Hysterectomy - Present Medications Home Medications: Ambulatory Orders Medication Instructions Recorded Confirmed Lisinopril [Zestril] 40 mg PO BID 11/30/22 11/30/22 Sertraline HCl 100 mg PO DAILY 11/30/22 11/30/22 Ubrogepant [Ubrelvy] 50 - 100 mg PO DAILY PRN 11/30/22 11/30/22 - Allergies Allergies/Adverse Reactions: Allergies Allergy/AdvReac Type Severity Reaction Status Date / Time Latex, Natural Rubber Allergy Rash Verified 11/30/22 11:03 - Social History Does the pt smoke?: No Smoking Status: Never smoker Does the pt drink ETOH?: No Does the pt have substance abuse?: No - Immunizations Immunizations are current?: Yes - POLST Patient has POLST: No PD ED PE EXPANDED - Extremities Extremities: Right foot (Mild swelling and ecchymosis of the right small toe. Tenderness to the proximal phalange E. No tenderness elsewhere elicited on the foot. No pain at the base of the fifth metatarsal. 2+ DP pulse. Full range of motion of the foot and ankle.) Results - Vitals Vitals: Vital Signs - 24 hr 11/30/22 11:05 Temperature 37.1 C Heart Rate 78 Respiratory 16 Rate Blood Pressure 193/118 H O2 Saturation 98 Oxygen O2 Source Room air PD Medical Decision Making - ED course Complexity details: reviewed results, d/w patient ED course: 57-year-old female with acute right foot toe pain after stubbing her foot on a wall yesterday. X-ray confirms 1/5 proximal phalangeal fracture. She has pain nowhere else in the foot with the exception of this area. Toe was von taped and she was given a hard postop shoe. She does have orthopedics to follow-up with. Recommend Tylenol Motrin [id number] which she was comfortable with. The usual emergent return precautions verbally discussed. Departure - Departure Disposition: 01 Home, Self Care Clinical Impression: Toe fracture, right Qualifiers: Encounter type: initial encounter Toe: lesser toe Fracture type: closed Phalanx: proximal Fracture alignment: displaced Qualified Code(s): S92.511A - Displaced fracture of proximal phalanx of right lesser toe(s), initial encounter for closed fracture Condition: Stable Record reviewed to determine appropriate education?: Yes Instructions: Fx Finger Toe Comments: Harriet the x-ray does confirm a proximal phalangeal fracture of your fifth small digit. In the interim I recommend keeping it von taped and icing it. You can take Tylenol or Motrin [id number] for discomfort. We are giving you a postop shoe to wear which can be more comfortable than other shoes. You can discuss this ED visit with your orthopedist and follow-up for longer-term evaluation.
== END 2022-11-30 12:09 | disposition home or self-care (01) ==
LOC: ED 10:53
DX: S92.511A Displaced fracture of proximal phalanx of right lesser toe(s), initial encounter for closed fracture (principal); W22.8XXA Striking against or struck by other objects, initial encounter; I10 Essential (primary) hypertension
CPT/HCPCS: 99281; 99283

== ENCOUNTER 2023-03-15 13:15 | Outpatient (CLI) | payer BC ==
--- NOTE | 2023-03-15 15:23 | XRAY Report ---
PROCEDURE: Thoracic Spine 2 View INDICATIONS: SPONDYLOSIS, THROACIC TECHNIQUE: 2 views of the thoracic spine were acquired. COMPARISON: None. FINDINGS: Bones: No fractures or dislocations. No suspicious bony lesions. 12 pairs of ribs are noted, and a ppear intact where visualized. Mild S-shaped scoliotic curvature of the thoracolumbar spine. Soft tissues: No paravertebral stripe thickening. IMPRESSION: No acute bony abnormality. Mild S-shaped scoliotic curvature. Reviewed by: Juan Carlos Howe MD on 03/15/2023 3:21 PM PDT Approved by: Juan Carlos Howe MD on 03/15/2023 3:21 PM PDT Station ID: [id number]
--- NOTE | 2023-03-15 20:37 | XRAY Report ---
PROCEDURE: Cervical Spine Comp w/Flex/Ext INDICATIONS: SPONDYLOSIS, THROACIC TECHNIQUE: 7 views of the cervical spine were acquired. COMPARISON: None. FINDINGS: Bones: Vertebral body height and alignment is maintained. Normal bone mineralization and cranioverte bral relationships. No fracture or traumatic malalignment. Flexion and extension imaging shows no evidence of instability. Oblique images demonstrate osseous patency of the neural foramina without stenosis. Soft tissues: Prevertebral soft tissues are normal in thickness. IMPRESSION: Unremarkable cervical spine radiographs without evidence of instability Reviewed by: Rell Cuevas MD on 03/15/2023 7:36 PM [facility] Approved by: Rell Cuevas MD on 03/15/2023 7:36 PM [facility] Station ID: [id number]
== END 2023-03-15 13:16 | disposition home or self-care (01) ==
LOC: DI.S 13:15
PROVIDERS: ATTEND Specialist
DX: M47.814 Spondylosis without myelopathy or radiculopathy, thoracic region (principal)

== ENCOUNTER 2023-03-17 13:53 | Outpatient (CLI) | payer BC ==
--- NOTE | 2023-03-18 09:33 | Mammography Report ---
BILATERAL DIGITAL SCREENING MAMMOGRAM 3D/2D: 03/17/2023 CLINICAL: Routine screening. Family history of breast cancer. Comparison is made to exams dated: 06/24/2020 mammogram - [facility], 08/26/2018 mammo gram, 08/22/2018 mammogram, 06/17/2017 mammogram, and 10/28/2016 mammogram - [facility]. Both breasts are heterogeneously dense, which may obscure small masses (category c / 51-75% glandular tissue). No significant masses, calcifications, or other findings are seen in either breast. There has been no significant interval change. IMPRESSION: NEGATIVE There is no mammographic evidence of malignancy. A 1 year screening mammogram is recommended. Based on Tyrer-Cuzick model (a risk assessment model), the patient's lifetime risk is 20.5% and her 1 0 year risk is 7.4%. If a patient has an elevated risk, a more comprehensive evaluation should be con sidered and/or a referral to a genetic counselor. The [employer], [employer], and NCCN Guidelines advise the consideration of Breast MRI as an adjunct to screening mammog shelia in patients whose "Lifetime risk to develop breast cancer" is 20% or higher. This exam was interpreted at Station ID: [id number]. NOTE: For mammograms, a report in lay terms will be sent to the patient. Approximately 15% of breast malignancies will not be visualized mammographically. In the management of a palpable breast mass, a negative mammogram must not discourage biopsy of a clinically suspicious lesion. Electronically Signed By: Susan Fregoso M.D., PH.D eb/penrad:03/18/2023 00:13:03 letter sent: No_Letter ACR BI-RADS Category 1: Negative 3341F PARENCHYMAL PATTERN: (D) - The breast(s) demonstrate(s) heterogeneously dense fibroglandular jonathan dotson. BI-RADS CATEGORY: (1) - 1 Mammogram [id number] 1 year screening LATERALITY: (B)
== END 2023-03-17 13:54 | disposition home or self-care (01) ==
LOC: DI.S 13:53
PROVIDERS: ATTEND Registered Nurse
DX: Z12.31 Encounter for screening mammogram for malignant neoplasm of breast (principal); Z80.3 Family history of malignant neoplasm of breast; R92.333 Mammographic heterogeneous density, bilateral breasts